=== PATIENT | male | born 1990 | race African-American/Black ===

== ENCOUNTER 2023-09-05 00:20 | Emergency (ER) | payer MEDICAID ==
[~2023-09-05] VITALS: Ht 182.9 cm; Wt 80.0 kg
[2023-09-05 00:25] VITALS: BP 160/100; O2SAT 98
[2023-09-05 04:39] VITALS: PULSE 100; RESP 16; TEMP 98.4
== END 2023-09-05 04:49 | disposition home or self-care (01) ==
LOC: ER 00:20
DX: F41.9 Anxiety disorder, unspecified (principal); F12.10 Cannabis abuse, uncomplicated; Z00.00 Encounter for general adult medical examination without abnormal findings
CPT/HCPCS: 99283